=== PATIENT | male | born 1930 | race Caucasian/White ===

== ENCOUNTER 2017-05-14 14:09 | Emergency (ER) | payer MEDICARE ==
[2017-05-14] MEDS ORDERED: KETOROLAC 60 MG/2 ML VIAL IM STA (14:27)
--- NOTE | 2017-05-14 14:34 | ED ---
Extremity Problem HPI - General Chief complaint: Extremity Problem,Nontraumatic Stated complaint: Hip Pain/ Cannot walk Time Seen by Provider: 05/14/17 14:20 Source: patient, RN notes reviewed Mode of arrival: wheelchair Limitations: no limitations - History of Present Illness Initial comments: This is a 87-year-old male with a history of sciatica on the left side who states he's had 2 days of pain on the left side he points to the left SI joint area states it gets very severe when he tries ambulate also has been unable to sleep for the past 2 days. Also the patient is a decreased oral intake the patient does have a history of diabetic neuropathy of the lower extremities he also has bilateral foot drop from his neuropathy. He has a history of BPH she does have no new complaints of bowel or bladder problems. No fevers chills sweats or other symptoms. He denies any dysuria hematuria fevers chills sweats he denies any coughing sneezing shortness of breath he denies any lifting bending stretching. 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 MD Complaint: extremity pain - Related Data Home Medications Medication Instructions Recorded Confirmed Finasteride [Proscar] 5 mg PO DAILY 11/15/15 05/14/17 Insulin Glargine [Lantus] 42 unit SQ DAILY 11/15/15 05/14/17 Atorvastatin [Lipitor] 10 mg PO DAILY 05/14/17 05/14/17 Ibuprofen [Motrin] 800 mg PO Q8H PRN 05/14/17 05/14/17 Previous Rx's Medication Instructions Recorded predniSONE 20 mg PO BID #10 tab 05/14/17 Allergies Allergy/AdvReac Type Severity Reaction Status Date / Time No Known Allergies Allergy Verified 05/14/17 14:31 Review of Systems ROS Statement: Those systems with pertinent positive or pertinent negative responses have been documented in the HPI. ROS Other: All systems not noted in ROS Statement are negative. Past Medical History Past Medical History: Diabetes Mellitus, Hyperlipidemia Additional Past Medical History / Comment(s): uti, vertigo, neuropathy History of Any Multi-Drug Resistant Organisms: None Reported Past Surgical History: Adenoidectomy, Hernia Repair, Joint Replacement, Tonsillectomy Additional Past Surgical History / Comment(s): casandra knee replacement Past Psychological History: No Psychological Hx Reported, Anxiety Smoking Status: Former smoker Past Alcohol Use History: None Reported Past Drug Use History: None Reported General Exam - General Exam Comments Initial Comments: This is a well-developed well-nourished awake alert oriented times 3 male Limitations: no limitations General appearance: alert, anxious Head exam: Present: atraumatic, normocephalic, normal inspection Eye exam: Present: normal appearance, PERRL, EOMI. Absent: scleral icterus, conjunctival injection, periorbital swelling ENT exam: Present: normal exam, mucous membranes moist Neck exam: Present: normal inspection. Absent: tenderness, meningismus, lymphadenopathy Respiratory exam: Present: normal lung sounds bilaterally. Absent: respiratory distress, wheezes, rales, rhonchi, stridor, chest wall tenderness Cardiovascular Exam: Present: regular rate, normal rhythm, normal heart sounds. Absent: systolic murmur, diastolic murmur, rubs, gallop, clicks GI/Abdominal exam: Present: soft, normal bowel sounds. Absent: distended, tenderness, guarding, rebound, rigid, bruit, pulsatile mass Rectal exam: Present: deferred Extremities exam: Present: normal inspection, full ROM, normal capillary refill , other (Patient does demonstrate some evidence of bilateral foot drop which she is early attested to. Some sensory deficit to touch over the lower extremities. DTRs do appear to be equal bilaterally.). Absent: tenderness, pedal edema, joint swelling, calf tenderness Back exam: Present: normal inspection, tenderness (Tenderness palpation of the left SI joint and left lateral sacral musculature. Tenderness also over the sciatica on the left. Gluteal tenderness). Absent: CVA tenderness (R), CVA tenderness (L), muscle spasm Neurological exam: Present: alert, oriented X3, CN II-XII intact, motor sensory deficit, reflexes normal Psychiatric exam: Present: normal affect, normal mood Skin exam: Present: warm, dry, intact, normal color. Absent: rash Course Vital Signs 05/14/17 14:12 Temperature 97.0 F L Pulse Rate 71 Respiratory 18 Rate Blood Pressure 192/84 O2 Sat by Pulse 97 Oximetry - Reevaluation(s) Reevaluation #1: 05/14/17 15:38 Patient states he was starting get some relief until he get a CAT scan. He states the pain is still relatively severe no difference in the symptoms. We will try some IV medications. I did discuss the CT findings with him. Medical Decision Making - Medical Decision Making Reevaluation patient reveals that he is feeling much improved this time is able ambulate is no pain at rest. I did discuss findings with him and his family members patient will be discharged on oral steroids he continues over-the- counter ibuprofen as he had previously for pain and did encourage him to follow- up with . also did recommend physical therapy his family does have physical therapy available for him. - Radiology Data Radiology results: report reviewed (Review the imaging and the report. There is evidence of degenerative joint disease also spinal stenosis at the lower lumbar level. Q findings.), image reviewed Disposition Clinical Impression: Sciatica of left side Disposition: HOME SELF-CARE Condition: Good Instructions: Sciatica (ED) Prescriptions: predniSONE 20 mg PO BID #10 tab Referrals: Mauricio Henderson DO [Primary Care Provider] - 1-2 days
--- NOTE | 2017-05-14 15:14 | CT ---
EXAMINATION TYPE: CT pelvis wo con DATE OF EXAM: 05/14/2017 COMPARISON: NONE HISTORY: Pain, sciatica, difficulty walking CT DLP: 590.01 mGycm Automated exposure control for dose reduction was used. Unenhanced CT of the pelvis was performed with bone and soft tissue window settings obtained. FINDINGS: No fractures are identified of the osseous pelvis. Sacroiliac joints demonstrate degenerative narrowi ng with mild vacuum changes. Moderate to severe degenerative narrowing bilateral hip joint spaces lef t greater than right with associated spur formation and subchondral cyst formation. No evidence for osseous lesion. No soft tissue masses. Severe degenerative change lower lumbar spine. Prostate gland enlargement. Fat-containing inguinal hernias bilaterally. Sigmoid diverticulosis without diverticulitis. IMPRESSION: 1. NO EVIDENCE FOR PELVIC FRACTURE. NO PROXIMAL FEMORAL FRACTURES IDENTIFIED. 2. DEGENERATIVE CHANGES NOTED.
--- NOTE | 2017-05-14 15:16 | CT ---
EXAMINATION TYPE: CT lumbar spine wo con DATE OF EXAM: 05/14/2017 3:05 PM COMPARISON: NONE HISTORY: Pain, sciatica, difficulty walking CT DLP: 942.26 mGycm Automated exposure control for dose reduction was used. Unenhanced CT of the lumbar spine was performed. Bone and soft tissue window settings are submitted as well as coronal and sagittal reconstructions. There is multilevel degenerative disc disease with vacuum disc and severe changes at L4-5 and L5-S1. Motion artifact limits assessment of the spinal canal. L1-L2: Normal disc space height. No disc herniation protrusion or central stenosis. No facet joint arthropathy. No evidence for foraminal encroachment. L2-L3: Normal disc space height. No disc herniation protrusion or central stenosis. No facet joint arthropathy. No evidence for foraminal encroachment. L3-L4: Diffuse disc bulging. Facet arthropathy noted. Mild canal stenosis and foraminal encroachment suspected correlate with MRI. L4-L5: Diffuse disc bulging and facet arthropathy. Motion artifact limits assessment. Ligamentum flav um suspected. Canal stenosis suspected with bilateral foraminal encroachment. Correlate with MRI. L5-S1: Facet arthropathy and degenerative disc disease. Mild bilateral foraminal encroachment. IMPRESSION: 1. Multilevel degenerative disc disease and hypertrophic changes with Limited exam due to motion tyree fact. Suspect canal stenosis at L4-5 and to a lesser extent at L3-4. MRI is recommended given the rojas itation exam.
[2017-05-14] MEDS ORDERED: SODIUM CHLORIDE 0.9% 500 ML IV STA (15:35)
[2017-05-14] MEDS ORDERED: methylPREDNISolone SOD SUCCI 125 MG/2 ML VIAL IV STA (15:35)
[2017-05-14] MEDS ORDERED: HYDROmorphone 1 MG/ML 1 ML SYRINGE IVP STA (15:35)
[2017-05-14 17:32] VITALS: BP 183/85; PULSE 73; RESP 17; TEMP 97.9
[2017-05-14] MEDS ORDERED: ONDANSETRON 4 MG/2 ML VIAL IVP STA (17:35)
== END 2017-05-14 17:45 | disposition home or self-care (01) ==
LOC: EC 14:09
DX: M54.32 Sciatica, left side (principal); E11.40 Type 2 diabetes mellitus with diabetic neuropathy, unspecified; E78.5 Hyperlipidemia, unspecified; F41.9 Anxiety disorder, unspecified; Z87.891 Personal history of nicotine dependence; Z79.4 Long term (current) use of insulin; Z79.899 Other long term (current) drug therapy
CPT/HCPCS: 72192; 72131; 99283; 96374; 96375 ×2; 96372; J2930; J2405; J1885; J1170

== ENCOUNTER 2018-02-20 22:02 | Inpatient (IN) | payer MEDICARE ==
[2018-02-20] MEDS ORDERED: KETOROLAC 30 MG/ML 1 ML VIAL IVP STA (22:36)
[2018-02-20] MEDS ORDERED: SODIUM CHLORIDE 0.9% 1,000 ML IV STA (22:36)
[2018-02-20] MEDS ORDERED: IPRATROPIUM-ALBUTEROL 3 ML NEB INHALATION STA (22:36)
[2018-02-20] MEDS ORDERED: ACETAMINOPHEN IV (For NPO) 1,000 MG in EMPTY BAG 1 BAG IVPB STA (22:36)
[2018-02-20] MEDS ORDERED: SODIUM CHLORIDE 0.9% 500 ML IV STA (22:36)
--- NOTE | 2018-02-20 22:53 | ED ---
General Adult HPI - General Chief complaint: Shortness of Breath Stated complaint: weakness, sore throat Time Seen by Provider: 02/20/18 22:14 Source: patient, family, RN notes reviewed, old records reviewed Mode of arrival: wheelchair Limitations: no limitations - History of Present Illness Initial comments: This is an 88-year-old male to the ER for evaluation he presents today for evaluation regarding multiple complaints, complaints then or not feeling well sore throat or chest cough congestion significantly mild difficulty breathing. Patient has no significant medical history denies chest pain he does have diabetes blood sugars were running well, is been decreased. Patient does not feel hungry, patient remains without appetite - Related Data Home Medications Medication Instructions Recorded Confirmed Finasteride [Proscar] 5 mg PO DAILY 11/15/15 05/14/17 Insulin Glargine [Lantus] 42 unit SQ DAILY 11/15/15 05/14/17 Atorvastatin [Lipitor] 10 mg PO DAILY 05/14/17 05/14/17 Ibuprofen [Motrin] 800 mg PO Q8H PRN 05/14/17 05/14/17 Previous Rx's Medication Instructions Recorded predniSONE 20 mg PO BID #10 tab 05/14/17 Allergies Allergy/AdvReac Type Severity Reaction Status Date / Time No Known Allergies Allergy Verified 05/14/17 14:31 Review of Systems ROS Statement: Those systems with pertinent positive or pertinent negative responses have been documented in the HPI. ROS Other: All systems not noted in ROS Statement are negative. Past Medical History Past Medical History: Diabetes Mellitus, Hyperlipidemia Additional Past Medical History / Comment(s): uti, vertigo, neuropathy History of Any Multi-Drug Resistant Organisms: None Reported Past Surgical History: Adenoidectomy, Hernia Repair, Joint Replacement, Tonsillectomy Additional Past Surgical History / Comment(s): casandra knee replacement Past Psychological History: No Psychological Hx Reported, Anxiety Smoking Status: Former smoker Past Alcohol Use History: None Reported Past Drug Use History: None Reported General Exam Limitations: no limitations General appearance: alert, in no apparent distress Head exam: Present: atraumatic, normocephalic, normal inspection Eye exam: Present: normal appearance, PERRL, EOMI. Absent: scleral icterus, conjunctival injection, periorbital swelling ENT exam: Present: normal exam, mucous membranes dry Neck exam: Present: normal inspection. Absent: tenderness, meningismus, lymphadenopathy Respiratory exam: Present: normal lung sounds bilaterally. Absent: respiratory distress, wheezes, rales, rhonchi, stridor Cardiovascular Exam: Present: regular rate, normal rhythm, normal heart sounds. Absent: systolic murmur, diastolic murmur, rubs, gallop, clicks GI/Abdominal exam: Present: soft, normal bowel sounds. Absent: distended, tenderness, guarding, rebound, rigid Extremities exam: Present: normal inspection, full ROM, normal capillary refill. Absent: tenderness, pedal edema, joint swelling, calf tenderness Back exam: Present: normal inspection Neurological exam: Present: alert, oriented X3, CN II-XII intact Psychiatric exam: Present: normal affect, normal mood Skin exam: Present: warm, dry, intact, normal color. Absent: rash Course Vital Signs 02/20/18 02/20/18 02/20/18 22:13 22:25 23:17 Temperature 99.3 F Pulse Rate 97 86 Respiratory 22 22 Rate Blood Pressure 131/74 O2 Sat by Pulse 95 Oximetry 02/20/18 23:28 Temperature Pulse Rate 90 Respiratory Rate Blood Pressure O2 Sat by Pulse Oximetry - Reevaluation(s) Reevaluation #1: 02/21/18 00:08 Patient does admit to being improved with fever and blood pressure control EKG Findings - EKG Comments: EKG Findings:: EKG shows normal sinus rhythm rate of 93, ME 202, QRS 86, QTc 422 Medical Decision Making - Medical Decision Making 88 male the ER with weakness and cough positive pneumonia. Patient also dehydrated with diabetes. We'll admit for resuscitation breathing treatments and monitoring of cardiopulmonary status - Lab Data Result diagrams: 02/20/18 22:58 02/20/18 22:58 Lab Results 02/20/18 02/20/18 02/20/18 Range/Units 22:58 22:58 22:58 WBC 8.4 (3.8-10.6) k/uL RBC 5.21 (4.30-5.90) m/uL Hgb 15.6 (13.0-17.5) gm/dL Hct 44.1 (39.0-53.0) % MCV 84.7 (80.0-100.0) fL MCH 30.0 (25.0-35.0) pg MCHC 35.4 (31.0-37.0) g/dL RDW 13.4 (11.5-15.5) % Plt Count 167 (150-450) k/uL Neutrophils % 81 % Lymphocytes % 9 % Monocytes % 6 % Eosinophils % 1 % Basophils % 1 % Neutrophils # 6.8 (1.3-7.7) k/uL Lymphocytes # 0.8 L (1.0-4.8) k/uL Monocytes # 0.5 (0-1.0) k/uL Eosinophils # 0.1 (0-0.7) k/uL Basophils # 0.0 (0-0.2) k/uL PT (9.0-12.0) sec INR (<1.2) APTT (22.0-30.0) sec Sodium 135 L (137-145) mmol/L Potassium 4.4 (3.5-5.1) mmol/L Chloride 105 (98-107) mmol/L Carbon Dioxide 23 (22-30) mmol/L Anion Gap 7 mmol/L BUN 17 (9-20) mg/dL Creatinine 0.88 (0.66-1.25) mg/dL Est GFR (CKD-EPI)AfAm 90 (>60 ml/min/1.73 sqM) Est GFR (CKD-EPI)NonAf 77 (>60 ml/min/1.73 sqM) Glucose 232 H (74-99) mg/dL Plasma Lactic Acid Trevor (0.7-2.0) mmol/L Calcium 8.9 (8.4-10.2) mg/dL Phosphorus 2.5 (2.5-4.5) mg/dL Magnesium 1.9 (1.6-2.3) mg/dL Total Bilirubin 0.6 (0.2-1.3) mg/dL AST 30 (17-59) U/L ALT 36 (21-72) U/L Alkaline Phosphatase 81 (38-126) U/L Total Creatine Kinase 202 H (55-170) U/L CK-MB (CK-2) 3.3 H (0.0-2.4) ng/mL CK-MB (CK-2) Rel Index 1.6 Troponin I <0.012 (0.000-0.034) ng/mL Total Protein 6.5 (6.3-8.2) g/dL Albumin 3.5 (3.5-5.0) g/dL Lipase 27 (23-300) U/L Acetone, Qual Positive (Negative) 02/20/18 02/20/18 Range/Units 22:58 22:58 WBC (3.8-10.6) k/uL RBC (4.30-5.90) m/uL Hgb (13.0-17.5) gm/dL Hct (39.0-53.0) % MCV (80.0-100.0) fL MCH (25.0-35.0) pg MCHC (31.0-37.0) g/dL RDW (11.5-15.5) % Plt Count (150-450) k/uL Neutrophils % % Lymphocytes % % Monocytes % % Eosinophils % % Basophils % % Neutrophils # (1.3-7.7) k/uL Lymphocytes # (1.0-4.8) k/uL Monocytes # (0-1.0) k/uL Eosinophils # (0-0.7) k/uL Basophils # (0-0.2) k/uL PT 9.6 (9.0-12.0) sec INR 1.0 (<1.2) APTT 24.1 (22.0-30.0) sec Sodium (137-145) mmol/L Potassium (3.5-5.1) mmol/L Chloride (98-107) mmol/L Carbon Dioxide (22-30) mmol/L Anion Gap mmol/L BUN (9-20) mg/dL Creatinine (0.66-1.25) mg/dL Est GFR (CKD-EPI)AfAm (>60 ml/min/1.73 sqM) Est GFR (CKD-EPI)NonAf (>60 ml/min/1.73 sqM) Glucose (74-99) mg/dL Plasma Lactic Acid Trevor 1.1 (0.7-2.0) mmol/L Calcium (8.4-10.2) mg/dL Phosphorus (2.5-4.5) mg/dL Magnesium (1.6-2.3) mg/dL Total Bilirubin (0.2-1.3) mg/dL AST (17-59) U/L ALT (21-72) U/L Alkaline Phosphatase (38-126) U/L Total Creatine Kinase (55-170) U/L CK-MB (CK-2) (0.0-2.4) ng/mL CK-MB (CK-2) Rel Index Troponin I (0.000-0.034) ng/mL Total Protein (6.3-8.2) g/dL Albumin (3.5-5.0) g/dL Lipase (23-300) U/L Acetone, Qual (Negative) - Radiology Data Radiology results: report reviewed (Chest x-ray is positive for pneumonia), image reviewed Disposition Clinical Impression: Community acquired pneumonia, Dehydration, Hyperglycemia Disposition: ADMITTED IP TO THIS HOSP Condition: Fair Is patient prescribed a controlled substance at d/c from ED?: No Referrals: Mauricio Henderson DO [Primary Care Provider] - 1-2 days
[2018-02-20 23:19] LABS: Partial Thromboplastin Time 24.1 sec (22.0-30.0); Prothrombin Time 9.6 sec (9.0-12.0)
[2018-02-20 23:23] LABS: ALT 36 U/L (21-72); AST 30 U/L (17-59); Albumin 3.5 g/dL (3.5-5.0); Alkaline Phosphatase 81 U/L (38-126); Anion Gap 7 mmol/L; Basophils % (A) 1 %; Blood Urea Nitrogen 17 mg/dL (9-20); Calcium 8.9 mg/dL (8.4-10.2); Carbon Dioxide 23 mmol/L (22-30); Chloride 105 mmol/L (98-107); Eosinophils # (A) 0.1 k/uL (0-0.7); Eosinophils % (A) 1 %; Glucose 232 mg/dL (74-99); HCT 44.1 % (39.0-53.0); HGB 15.6 gm/dL (13.0-17.5); Lipase 27 U/L (23-300); Lymphocytes # (A) 0.8 k/uL (1.0-4.8); Lymphocytes % (A) 9 %; MCHC 35.4 g/dL (31.0-37.0); MCV 84.7 fL (80.0-100.0); Magnesium 1.9 mg/dL (1.6-2.3); Monocytes # (A) 0.5 k/uL (0-1.0); Monocytes % (A) 6 %; Neutrophils # (A) 6.8 k/uL (1.3-7.7); Neutrophils % (A) 81 %; Phosphorus 2.5 mg/dL (2.5-4.5); Platelet Count 167 k/uL (150-450); Potassium 4.4 mmol/L (3.5-5.1); RBC 5.21 m/uL (4.30-5.90); RDW 13.4 % (11.5-15.5); Sodium 135 mmol/L (137-145); Total Bilirubin 0.6 mg/dL (0.2-1.3); Total Protein 6.5 g/dL (6.3-8.2); WBC 8.4 k/uL (3.8-10.6)
[2018-02-20 23:25] LABS: Creatine Kinase 202 U/L (55-170)
[2018-02-20 23:38] LABS: Creatine Kinase MB 3.3 ng/mL (0.0-2.4); Troponin I <0.012 ng/mL (0.000-0.034)
--- NOTE | 2018-02-20 23:40 | XR ---
EXAMINATION TYPE: XR chest 2V DATE OF EXAM: 02/20/2018 COMPARISON: 11/15/2015 HISTORY: Weakness TECHNIQUE: Frontal and lateral views of the chest are obtained. FINDINGS: There is slight blunting of left costophrenic angle. There is a small infiltrate in the le ft lower lobe behind the heart. The other lung ji are clear. Heart size is normal. There are ches t leads. IMPRESSION: There is a new mild pneumonia in the left lower lobe compared to old exam. Normal heart.
[2018-02-20] MEDS ORDERED: LEVOFLOXACIN 750MG-D5W PMX 750 MG in DEXTROSE/WATER 1 150ML.BAG IVPB STA (23:47)
[2018-02-21] MEDS ORDERED: PNEUMONIA PROTOCOL UTILIZED 1 EACH MISC PO PRN (00:09)
[2018-02-21] MEDS ORDERED: IPRATROPIUM-ALBUTEROL 3 ML NEB INHALATION PRN (00:09)
[2018-02-21 00:28] LABS: Appearance,Urine Clear (Clear); Bilirubin,Urine Negative (Negative); Blood,Urine Trace (Negative); Color,Urine Yellow; Glucose,Urine (UA) 4+ (Negative); Ketones,Urine Trace (Negative); Leukocyte Esterase,Urine Negative (Negative); Mucus,Urine Rare /hpf; Nitrite,Urine Negative (Negative); PH, Urine 5.5 (5.0-8.0); Protein,Urine Trace (Negative); RBC,Urine 1 /hpf (0-5); Specific Gravity,Urine 1.016 (1.001-1.035); Squamous Epithelial Cell,Urine <1 /hpf (0-4); Urobilinogen,Urine <2.0 mg/dL (<2.0); WBC,Urine 1 /hpf (0-5)
[2018-02-21] MEDS: SODIUM CHLORIDE 0.9% 1,000 ML IV SCH ×3 (04:10→20:09)
[2018-02-21 07:31] LABS: Glucose,Whole Blood 222 mg/dL (75-99)
[2018-02-21] MEDS: ENOXAPARIN 40 MG/0.4 ML SYRINGE SQ SCH (08:28)
[2018-02-21] MEDS: INSULIN ASPART 100 UNIT/ML 1 ML 10 ML VIAL SQ SCH ×3 (08:28→17:46)
[2018-02-21] MEDS: FINASTERIDE 5 MG TAB PO SCH (09:56)
[2018-02-21 12:55] LABS: Glucose,Whole Blood 109 mg/dL (75-99)
[2018-02-21 14:38] VITALS: RESP 18
[2018-02-21 17:43] LABS: Glucose,Whole Blood 152 mg/dL (75-99)
[2018-02-21] MEDS: LEVOFLOXACIN 750 MG TAB PO SCH (20:10)
[2018-02-21] MEDS: FAMOTIDINE 20 MG/2 ML VIAL IV SCH (20:10)
[2018-02-21] MEDS: ATORVASTATIN 10 MG TAB PO SCH (20:10)
--- NOTE | 2018-02-21 20:17 | P.HPIM ---
History of Present Illness This is a pleasant 88 years old male with past medical history of diabetes mellitus on Lantus daily, hyperlipidemia, diabetic neuropathy, prostatic problem with BPH, who presents because of dyspnea of 2-3 days duration. At that time patient started having some upper respiratory congestion with sore throat, associated with generalized weakness and malaise. Decreased oral intake. With some dyspnea and right-sided headache. However patient denies any chest pain. No sick contacts. In the emergency room chest x-ray showed left lower lobe infiltrate. And he was admitted for left pneumonia Patient denies any history of vomiting or choking or swallowing difficulty. Patient states he takes Lantus daily, with the dose depending on his sugar level in the morning. As per his PCP, he takes for 2 units of Lantus for sugar more than 200, Lantus 30 units for sugar of 150, Lantus 10 units for sugar of 100 Review of Systems CONSTITUTIONAL: No fever, no malaise, no fatigue. HEENT: No recent visual problems or hearing problems. Denied any sore throat. CARDIOVASCULAR: No orthopnea, PND, no palpitations, no syncope. PULMONARY: no hemoptysis. GASTROINTESTINAL: No diarrhea, no nausea, no vomiting, no abdominal pain. Normoactive bowel sounds. NEUROLOGICAL: No headaches, no weakness, no numbness. HEMATOLOGICAL: Denies any bleeding or petechiae. GENITOURINARY: Denies any burning micturition, frequency, or urgency. MUSCULOSKELETAL/RHEUMATOLOGICAL: Denies any joint pain, swelling, or any muscle pain. ENDOCRINE: Denies any polyuria or polydipsia. Past Medical History Past Medical History: Diabetes Mellitus, Hyperlipidemia Additional Past Medical History / Comment(s): uti, vertigo, neuropathy History of Any Multi-Drug Resistant Organisms: None Reported Past Surgical History: Adenoidectomy, Hernia Repair, Joint Replacement, Tonsillectomy Additional Past Surgical History / Comment(s): casandra knee replacement; bilateral cataract removal, lens implants Past Anesthesia/Blood Transfusion Reactions: No Reported Reaction Past Psychological History: No Psychological Hx Reported, Anxiety Smoking Status: Former smoker Past Alcohol Use History: None Reported Past Drug Use History: None Reported - Past Family History Father Additional Family Medical History / Comment(s): Father of emphysema, mom at 101 Medications and Allergies Home Medications Medication Instructions Recorded Confirmed Type Finasteride [Proscar] 5 mg PO DAILY 11/15/15 02/21/18 History Insulin Glargine [Lantus] See Protocol SQ DAILY 11/15/15 02/21/18 History Atorvastatin [Lipitor] 10 mg PO DAILY 05/14/17 02/21/18 History Allergies Allergy/AdvReac Type Severity Reaction Status Date / Time No Known Allergies Allergy Verified 02/21/18 08:31 Physical Exam Vitals: Vital Signs Temp Pulse Pulse Resp BP BP Pulse Ox 02/21/18 07:13 96 02/21/18 07:04 97.9 F 60 16 133/77 97 02/21/18 01:17 99.3 F 86 16 108/65 96 02/21/18 00:29 98.7 F 87 20 118/56 95 02/20/18 23:28 90 02/20/18 23:17 86 02/20/18 22:25 22 02/20/18 22:13 99.3 F 97 22 131/74 95 Intake and Output 02/20/18 02/21/18 02/21/18 22:59 06:59 14:59 Intake Total 1600 Balance 1600 Intake: Amount of Fluid Infused ( 1600 ml) Other: Voiding Method Toilet Urinal # Voids 0 # Bowel Movements 0 Weight 88.451 kg GENERAL: The patient is alert and oriented x3, not in any acute distress. Well developed, well nourished. HEENT: Pupils are round and equally reacting to light. EOMI. No scleral icterus. No conjunctival pallor. Normocephalic, atraumatic. No pharyngeal erythema. No thyromegaly. CARDIOVASCULAR: S1 and S2 present. No murmurs, rubs, or gallops. PULMONARY: Chest is clear to auscultation, no wheezing or crackles. ABDOMEN: Soft, nontender, nondistended, normoactive bowel sounds. No palpable organomegaly. MUSCULOSKELETAL: No joint swelling or deformity. EXTREMITIES: No cyanosis, clubbing, or pedal edema. NEUROLOGICAL: Gross neurological examination did not reveal any focal deficits. SKIN: No rashes. Results CBC & Chem 7: 02/20/18 22:58 02/20/18 22:58 Labs: Abnormal Lab Results - Last 24 Hours (Table) 02/20/18 02/20/18 02/20/18 Range/Units 22:58 22:58 22:58 Lymphocytes # 0.8 L (1.0-4.8) k/uL Sodium 135 L (137-145) mmol/L Glucose 232 H (74-99) mg/dL POC Glucose (mg/dL) (75-99) mg/dL Total Creatine Kinase 202 H (55-170) U/L CK-MB (CK-2) 3.3 H (0.0-2.4) ng/mL Urine Protein (Negative) Urine Glucose (UA) (Negative) Urine Ketones (Negative) Urine Blood (Negative) Urine Mucus (None) /hpf 02/21/18 02/21/18 Range/Units 00:04 07:08 Lymphocytes # (1.0-4.8) k/uL Sodium (137-145) mmol/L Glucose (74-99) mg/dL POC Glucose (mg/dL) 222 H (75-99) mg/dL Total Creatine Kinase (55-170) U/L CK-MB (CK-2) (0.0-2.4) ng/mL Urine Protein Trace H (Negative) Urine Glucose (UA) 4+ H (Negative) Urine Ketones Trace H (Negative) Urine Blood Trace H (Negative) Urine Mucus Rare H (None) /hpf Thrombosis Risk Factor Assmnt - Choose All That Apply Any of the Below Risk Factors Present?: Yes Each Factor Represents 1 point: Obesity (BMI >25), Serious lung disease incl. pneumonia (< 1month) Other Risk Factors: Yes Each Risk Factor Represents 3 Points: Age 75 years or older Thrombosis Risk Factor Assessment Total Risk Factor Score: 5 Thrombosis Risk Factor Assessment Level: High Risk Assessment and Plan Assessment: Left lower lobe pneumonia Sore throats and nasal congestion Diabetes mellitus, on Lantus daily Diabetic neuropathy BPH Hyperlipidemia Plan: This is a pleasant 88 years old male who presents with left pneumonia. Patient was started on Levaquin, and IV fluids. We'll continue with same and treatment. Continue symptomatic treatment. Patient got 2 L of fluids in the emergency room and already started feeling better, his headache is completely resolved on admission. Monitor labs and vitals. DVT and GI prophylaxis. Follow-up culture results. Further recommendation is based on the clinical course of the patient DVT prophylaxis on Lovenox GI prophylaxis Pepcid PT/OT: Pending
[2018-02-21 20:55] LABS: Glucose,Whole Blood 232 mg/dL (75-99)
[2018-02-21] MEDS: INSULIN DETEMIR 100 UNIT/ML 10 ML VIAL SQ SCH (21:16)
[2018-02-21] MEDS ORDERED: LEVOFLOXACIN 750MG-D5W PMX 750 MG in DEXTROSE/WATER 1 150ML.BAG IVPB SCH (22:00)
[2018-02-22 03:16] LABS: Glucose,Whole Blood 125 mg/dL (75-99)
[2018-02-22] MEDS: SODIUM CHLORIDE 0.9% 1,000 ML IV SCH ×2 (06:15→17:45)
[2018-02-22 07:22] LABS: Glucose,Whole Blood 87 mg/dL (75-99)
[2018-02-22] MEDS: INSULIN ASPART 100 UNIT/ML 1 ML 10 ML VIAL SQ SCH ×3 (07:33→17:46)
--- NOTE | 2018-02-22 08:23 | XR ---
EXAMINATION TYPE: XR chest 2V DATE OF EXAM: 02/22/2018 COMPARISON: 02/20/2018 TECHNIQUE: PA and lateral views submitted. HISTORY: Pneumonia FINDINGS: The lungs are clear and there is no pneumothorax, pleural effusion, or focal pneumonia. Hyperinflat ion suggests COPD. Arthropathy of the shoulders. Subsegmental changes at the left lung base. Hypertro phic and degenerative change of the spine. Atherosclerotic change aorta. IMPRESSION: 1. COPD. Left basilar atelectasis or infiltrate is stable.
[2018-02-22] MEDS ORDERED: FINASTERIDE 5 MG TAB PO SCH (09:00)
[2018-02-22] MEDS: FINASTERIDE 5 MG TAB PO SCH (09:11)
[2018-02-22] MEDS: ENOXAPARIN 40 MG/0.4 ML SYRINGE SQ SCH (09:12)
[2018-02-22] MEDS: FAMOTIDINE 20 MG/2 ML VIAL IV SCH (09:12)
[2018-02-22 09:53] LABS: Basophils # (A) 0.1 k/uL (0-0.2); Basophils % (A) 1 %; Eosinophils # (A) 0.1 k/uL (0-0.7); Eosinophils % (A) 1 %; HCT 45.1 % (39.0-53.0); HGB 14.8 gm/dL (13.0-17.5); Lymphocytes % (A) 10 %; MCH 27.9 pg (25.0-35.0); MCHC 32.9 g/dL (31.0-37.0); MCV 84.7 fL (80.0-100.0); Monocytes # (A) 0.5 k/uL (0-1.0); Monocytes % (A) 5 %; Neutrophils # (A) 8.1 k/uL (1.3-7.7); Neutrophils % (A) 81 %; Platelet Count 210 k/uL (150-450); RBC 5.32 m/uL (4.30-5.90); RDW 13.3 % (11.5-15.5); WBC 10.1 k/uL (3.8-10.6)
[2018-02-22 10:11] LABS: Anion Gap 4 mmol/L; Blood Urea Nitrogen 14 mg/dL (9-20); Calcium 8.8 mg/dL (8.4-10.2); Carbon Dioxide 28 mmol/L (22-30); Chloride 108 mmol/L (98-107); Glucose 128 mg/dL (74-99); Potassium 4.6 mmol/L (3.5-5.1); Sodium 140 mmol/L (137-145)
[2018-02-22 12:03] LABS: Glucose,Whole Blood 108 mg/dL (75-99)
[2018-02-22 12:38] LABS: Appearance,Urine Clear (Clear); Bilirubin,Urine Negative (Negative); Blood,Urine Large (Negative); Color,Urine Yellow; Glucose,Urine (UA) Negative (Negative); Ketones,Urine Trace (Negative); Leukocyte Esterase,Urine Large (Negative); Nitrite,Urine Negative (Negative); Protein,Urine Negative (Negative); RBC,Urine >182 /hpf (0-5); Specific Gravity,Urine 1.009 (1.001-1.035); Urobilinogen,Urine <2.0 mg/dL (<2.0); WBC,Urine 35 /hpf (0-5)
[2018-02-22] MEDS: methylPREDNISolone SOD SUCCI 125 MG/2 ML VIAL IV SCH ×2 (12:46→17:46)
[2018-02-22] MEDS ORDERED: TRIMETHOBENZAMIDE 300 MG CAP PO PRN (14:58)
--- NOTE | 2018-02-22 15:01 | P.PN ---
Subjective This is a pleasant 88 years old male with past medical history of diabetes mellitus on Lantus daily, hyperlipidemia, diabetic neuropathy, prostatic problem with BPH, who presents because of dyspnea of 2-3 days duration. At that time patient started having some upper respiratory congestion with sore throat, associated with generalized weakness and malaise. Decreased oral intake. With some dyspnea and right-sided headache. However patient denies any chest pain. No sick contacts. In the emergency room chest x-ray showed left lower lobe infiltrate. And he was admitted for left pneumonia Patient denies any history of vomiting or choking or swallowing difficulty. Patient states he takes Lantus daily, with the dose depending on his sugar level in the morning. As per his PCP, he takes for 2 units of Lantus for sugar more than 200, Lantus 30 units for sugar of 150, Lantus 10 units for sugar of 100 02/22/2018 Today patient is a still dyspneic. However he denies chest pain. History of throat and coughing are improving. However patient developing nausea with no vomiting. Patient also wants to have urinary retention after several attempts with straight cath Cobian catheter was placed. Urinalysis and urine culture were sent patient is already on finasteride. Patient is [place] smoker he smoked for 15 years and quit about 35 years ago. It was noticed that his chest is tight and barrel-shaped with decreased air entry repeat chest x-ray from today shows COPD with stable infiltrate. Patient was started on steroids Objective - Vital Signs Vital signs: Vital Signs Temp 97.6 F 02/22/18 07:00 Pulse 101 H 02/22/18 07:00 Resp 18 02/22/18 08:00 BP 165/70 02/22/18 07:00 Pulse Ox 96 02/22/18 07:00 Intake & Output 02/21/18 02/22/18 02/22/18 18:59 06:59 18:59 Intake Total 200 Output Total 2626 1250 Balance -2626 -1250 200 Intake: Oral 200 Output: Urine 1875 1250 Straight 500 Post Void Residual 751 Other: Voiding Method Toilet Toilet Urinal Urinal # Voids 0 2 # Bowel Movements 1 - Exam GENERAL: The patient is alert and oriented x3, not in any acute distress. Well developed, well nourished. HEENT: Pupils are round and equally reacting to light. EOMI. No scleral icterus. No conjunctival pallor. Normocephalic, atraumatic. No pharyngeal erythema. No thyromegaly. CARDIOVASCULAR: S1 and S2 present. No murmurs, rubs, or gallops. PULMONARY: Chest is clear to auscultation, no wheezing or crackles. ABDOMEN: Soft, nontender, nondistended, normoactive bowel sounds. No palpable organomegaly. MUSCULOSKELETAL: No joint swelling or deformity. EXTREMITIES: No cyanosis, clubbing, or pedal edema. NEUROLOGICAL: Gross neurological examination did not reveal any focal deficits. SKIN: No rashes. - Labs CBC & Chem 7: 02/22/18 09:15 02/22/18 09:15 Labs: Abnormal Lab Results - Last 24 Hours (Table) 02/21/18 02/21/18 02/22/18 Range/Units 16:59 20:54 03:14 Neutrophils # (1.3-7.7) k/uL Chloride (98-107) mmol/L Glucose (74-99) mg/dL POC Glucose (mg/dL) 152 H 232 H 125 H (75-99) mg/dL Urine Ketones (Negative) Urine Blood (Negative) Ur Leukocyte Esterase (Negative) Urine RBC (0-5) /hpf Urine WBC (0-5) /hpf 02/22/18 02/22/18 02/22/18 Range/Units 09:15 09:15 11:55 Neutrophils # 8.1 H (1.3-7.7) k/uL Chloride 108 H (98-107) mmol/L Glucose 128 H (74-99) mg/dL POC Glucose (mg/dL) 108 H (75-99) mg/dL Urine Ketones (Negative) Urine Blood (Negative) Ur Leukocyte Esterase (Negative) Urine RBC (0-5) /hpf Urine WBC (0-5) /hpf 02/22/18 Range/Units 12:15 Neutrophils # (1.3-7.7) k/uL Chloride (98-107) mmol/L Glucose (74-99) mg/dL POC Glucose (mg/dL) (75-99) mg/dL Urine Ketones Trace H (Negative) Urine Blood Large H (Negative) Ur Leukocyte Esterase Large H (Negative) Urine RBC >182 H (0-5) /hpf Urine WBC 35 H (0-5) /hpf Microbiology - Last 24 Hours (Table) 02/21/18 00:04 Urine Culture - Final Urine,Voided 02/20/18 22:58 Blood Culture - Preliminary Blood No Growth after 24 hours Assessment and Plan Assessment: Left lower lobe pneumonia COPD with acute exacerbation Urinary retention Sore throats and nasal congestion Diabetes mellitus, on Lantus daily Diabetic neuropathy BPH Hyperlipidemia Plan: This is a pleasant 88 years old male who presents with left pneumonia. Patient was started on Levaquin, and IV fluids. We'll continue with same and treatment. Continue symptomatic treatment. Patient got 2 L of fluids in the emergency room and already started feeling better, his headache is completely resolved on admission. Monitor labs and vitals. Cobian catheter was placed. Patient was started on steroids DVT and GI prophylaxis. Follow-up culture results. Further recommendation is based on the clinical course of the patient DVT prophylaxis on Lovenox GI prophylaxis Pepcid PT/OT: Pending
[2018-02-22] MEDS: IPRATROPIUM-ALBUTEROL 3 ML NEB INHALATION SCH ×2 (15:31→19:10)
[2018-02-22 17:36] LABS: Glucose,Whole Blood 183 mg/dL (75-99)
[2018-02-22 21:21] LABS: Glucose,Whole Blood 284 mg/dL (75-99)
[2018-02-22] MEDS: ATORVASTATIN 10 MG TAB PO SCH (22:04)
[2018-02-22] MEDS: INSULIN DETEMIR 100 UNIT/ML 10 ML VIAL SQ SCH (22:05)
[2018-02-22] MEDS: LEVOFLOXACIN 750 MG TAB PO SCH (22:05)
[2018-02-22] MEDS: FAMOTIDINE 20 MG TAB PO SCH (22:06)
[2018-02-23] MEDS: methylPREDNISolone SOD SUCCI 125 MG/2 ML VIAL IV SCH ×3 (00:12→12:38)
[2018-02-23] MEDS ORDERED: IPRATROPIUM-ALBUTEROL 3 ML NEB INHALATION PRN (00:27)
[2018-02-23] MEDS: IPRATROPIUM-ALBUTEROL 3 ML NEB INHALATION SCH ×5 (00:27→19:49)
[2018-02-23] MEDS: SODIUM CHLORIDE 0.9% 1,000 ML IV SCH ×4 (03:11→21:06)
[2018-02-23 07:23] LABS: Glucose,Whole Blood 130 mg/dL (75-99)
[2018-02-23] MEDS: ENOXAPARIN 40 MG/0.4 ML SYRINGE SQ SCH (08:41)
[2018-02-23] MEDS: INSULIN ASPART 100 UNIT/ML 1 ML 10 ML VIAL SQ SCH ×3 (08:41→18:01)
[2018-02-23] MEDS: FINASTERIDE 5 MG TAB PO SCH (08:41)
[2018-02-23] MEDS: FAMOTIDINE 20 MG TAB PO SCH ×2 (08:41→21:04)
[2018-02-23 09:54] LABS: Basophils % (A) 0 %; Eosinophils % (A) 0 %; HGB 14.2 gm/dL (13.0-17.5); Lymphocytes # (A) 0.8 k/uL (1.0-4.8); Lymphocytes % (A) 9 %; MCH 28.7 pg (25.0-35.0); MCHC 33.1 g/dL (31.0-37.0); MCV 86.7 fL (80.0-100.0); Mean Platelet Volume 7.6; Monocytes # (A) 0.3 k/uL (0-1.0); Monocytes % (A) 4 %; Neutrophils # (A) 6.9 k/uL (1.3-7.7); Neutrophils % (A) 85 %; Platelet Count 234 k/uL (150-450); RBC 4.96 m/uL (4.30-5.90); RDW 13.3 % (11.5-15.5); WBC 8.1 k/uL (3.8-10.6)
[2018-02-23 09:55] LABS: Anion Gap 10 mmol/L; Blood Urea Nitrogen 20 mg/dL (9-20); Calcium 8.6 mg/dL (8.4-10.2); Carbon Dioxide 23 mmol/L (22-30); Chloride 107 mmol/L (98-107); Glucose 191 mg/dL (74-99); Potassium 4.6 mmol/L (3.5-5.1); Sodium 140 mmol/L (137-145)
[2018-02-23 12:00] LABS: Glucose,Whole Blood 246 mg/dL (75-99)
--- NOTE | 2018-02-23 13:53 | P.PN ---
Subjective This is a pleasant 88 years old male with past medical history of diabetes mellitus on Lantus daily, hyperlipidemia, diabetic neuropathy, prostatic problem with BPH, who presents because of dyspnea of 2-3 days duration. At that time patient started having some upper respiratory congestion with sore throat, associated with generalized weakness and malaise. Decreased oral intake. With some dyspnea and right-sided headache. However patient denies any chest pain. No sick contacts. In the emergency room chest x-ray showed left lower lobe infiltrate. And he was admitted for left pneumonia Patient denies any history of vomiting or choking or swallowing difficulty. Patient states he takes Lantus daily, with the dose depending on his sugar level in the morning. As per his PCP, he takes for 2 units of Lantus for sugar more than 200, Lantus 30 units for sugar of 150, Lantus 10 units for sugar of 100 02/22/2018 Today patient is a still dyspneic. However he denies chest pain. History of throat and coughing are improving. However patient developing nausea with no vomiting. Patient also wants to have urinary retention after several attempts with straight cath Cobian catheter was placed. Urinalysis and urine culture were sent patient is already on finasteride. Patient is [place] smoker he smoked for 15 years and quit about 35 years ago. It was noticed that his chest is tight and barrel-shaped with decreased air entry repeat chest x-ray from today shows COPD with stable infiltrate. Patient was started on steroids 02/23/2018 Patient today is feeling better, his breathing significantly improved, with no chest pain. Air entry and movement in the light is better compared to chest tightness yesterday. We will start tapering steroids. Patient has minimal cough and sore throat as both are improving. His generalized weakness is also improving patient has been evaluated by physical therapy with recommendation for home versus home with home health care. Patient is still has a Cobian catheter with clear urine, I offered to DC the Cobian catheter however patient preferred to keep it in follow-up with his urologist. He has a urologist who hasn't seen for the last 2 years and the second is going to call and make appointment. UA: Pending Antonette possible traumatic Cobian catheter insertion Patient states he was not on home oxygen or steroids at home. Continue with levofloxacin, lower IV fluids. Objective - Vital Signs Vital signs: Vital Signs Temp 97.0 F L 02/23/18 06:34 Pulse 70 02/23/18 06:34 Resp 18 02/23/18 06:34 BP 140/79 02/23/18 06:34 Pulse Ox 96 02/23/18 06:34 Intake & Output 02/22/18 02/23/18 02/23/18 18:59 06:59 18:59 Intake Total 200 Output Total 2000 750 Balance -1800 -750 Intake: Oral 200 Output: Urine 1999 750 Other: Voiding Method Toilet Toilet Urinal Urinal # Bowel Movements 0 1 - Exam GENERAL: The patient is alert and oriented x3, not in any acute distress. Well developed, well nourished. HEENT: Pupils are round and equally reacting to light. EOMI. No scleral icterus. No conjunctival pallor. Normocephalic, atraumatic. No pharyngeal erythema. No thyromegaly. CARDIOVASCULAR: S1 and S2 present. No murmurs, rubs, or gallops. -PULMONARY: Chest is clear to auscultation, scattered wheezing . no crackles. ABDOMEN: Soft, nontender, nondistended, normoactive bowel sounds. No palpable organomegaly. Cobian catheter is in place with clear urine MUSCULOSKELETAL: No joint swelling or deformity. EXTREMITIES: No cyanosis, clubbing, or pedal edema. NEUROLOGICAL: Gross neurological examination did not reveal any focal deficits. SKIN: No rashes. - Labs CBC & Chem 7: 02/23/18 08:31 02/23/18 08:31 Labs: Abnormal Lab Results - Last 24 Hours (Table) 02/22/18 02/22/18 02/23/18 Range/Units 17:16 21:20 07:19 Lymphocytes # (1.0-4.8) k/uL Glucose (74-99) mg/dL POC Glucose (mg/dL) 183 H 284 H 130 H (75-99) mg/dL 02/23/18 02/23/18 02/23/18 Range/Units 08:31 08:31 11:57 Lymphocytes # 0.8 L (1.0-4.8) k/uL Glucose 191 H (74-99) mg/dL POC Glucose (mg/dL) 246 H (75-99) mg/dL Microbiology - Last 24 Hours (Table) 02/22/18 12:15 Urine Culture - Final Urine,Catheterized 02/20/18 22:58 Blood Culture - Preliminary Blood No Growth after 48 hours 02/21/18 00:04 Urine Culture - Final Urine,Voided Assessment and Plan Assessment: Left lower lobe pneumonia COPD with acute exacerbation Urinary retention Sore throats and nasal congestion Diabetes mellitus, on Lantus daily Diabetic neuropathy BPH Hyperlipidemia Plan: This is a pleasant 88 years old male who presents with left pneumonia. Patient was started on Levaquin, and IV fluids. We'll continue with same and treatment. Continue symptomatic treatment. Patient got 2 L of fluids in the emergency room and already started feeling better, his headache is completely resolved on admission. Monitor labs and vitals. Cobian catheter was placed. Patient was started on steroids DVT and GI prophylaxis. Follow-up culture results. Further recommendation is based on the clinical course of the patient DVT prophylaxis on Lovenox GI prophylaxis Pepcid PT/OT: Home care Discharge planning in 24-48 hours
[2018-02-23 17:17] LABS: Glucose,Whole Blood 234 mg/dL (75-99)
[2018-02-23] MEDS: predniSONE 10 MG TAB PO SCH (18:01)
[2018-02-23 20:36] LABS: Glucose,Whole Blood 256 mg/dL (75-99)
[2018-02-23] MEDS: LEVOFLOXACIN 750 MG TAB PO SCH (21:04)
[2018-02-23] MEDS: ATORVASTATIN 10 MG TAB PO SCH (21:04)
[2018-02-23] MEDS: INSULIN DETEMIR 100 UNIT/ML 10 ML VIAL SQ SCH (21:05)
[2018-02-24] MEDS: IPRATROPIUM-ALBUTEROL 3 ML NEB INHALATION SCH ×3 (07:03→16:41)
[2018-02-24 07:36] LABS: Glucose,Whole Blood 205 mg/dL (75-99)
[2018-02-24] MEDS: ENOXAPARIN 40 MG/0.4 ML SYRINGE SQ SCH (08:15)
[2018-02-24] MEDS: FINASTERIDE 5 MG TAB PO SCH (08:15)
[2018-02-24] MEDS: INSULIN ASPART 100 UNIT/ML 1 ML 10 ML VIAL SQ SCH ×2 (08:15→13:57)
[2018-02-24] MEDS: FAMOTIDINE 20 MG TAB PO SCH (08:15)
[2018-02-24] MEDS: predniSONE 10 MG TAB PO SCH (08:15)
[2018-02-24] MEDS: SODIUM CHLORIDE 0.9% 1,000 ML IV SCH ×2 (08:16)
[2018-02-24 09:25] LABS: Basophils % (A) 0 %; Eosinophils % (A) 0 %; HCT 43.7 % (39.0-53.0); HGB 13.9 gm/dL (13.0-17.5); Lymphocytes # (A) 1.2 k/uL (1.0-4.8); Lymphocytes % (A) 8 %; MCH 27.3 pg (25.0-35.0); MCHC 31.8 g/dL (31.0-37.0); MCV 85.9 fL (80.0-100.0); Mean Platelet Volume 6.7; Monocytes # (A) 0.5 k/uL (0-1.0); Monocytes % (A) 3 %; Neutrophils # (A) 13.1 k/uL (1.3-7.7); Neutrophils % (A) 87 %; Platelet Count 256 k/uL (150-450); RBC 5.08 m/uL (4.30-5.90); RDW 13.4 % (11.5-15.5); WBC 14.9 k/uL (3.8-10.6)
[2018-02-24 09:50] LABS: Anion Gap 8 mmol/L; Blood Urea Nitrogen 21 mg/dL (9-20); Calcium 8.4 mg/dL (8.4-10.2); Carbon Dioxide 24 mmol/L (22-30); Chloride 107 mmol/L (98-107); Glucose 195 mg/dL (74-99); Potassium 4.8 mmol/L (3.5-5.1); Sodium 139 mmol/L (137-145)
[2018-02-24 12:19] LABS: Glucose,Whole Blood 203 mg/dL (75-99)
[2018-02-24 14:41] LABS: Appearance,Urine Clear (Clear); Bacteria,Urine Rare /hpf; Bilirubin,Urine Negative (Negative); Blood,Urine Small (Negative); Color,Urine Light Yellow; Glucose,Urine (UA) 4+ (Negative); Ketones,Urine Negative (Negative); Leukocyte Esterase,Urine Trace (Negative); Mucus,Urine Rare /hpf; Nitrite,Urine Negative (Negative); Protein,Urine Negative (Negative); RBC,Urine 1 /hpf (0-5); Specific Gravity,Urine 1.009 (1.001-1.035); Urobilinogen,Urine <2.0 mg/dL (<2.0); WBC,Urine 3 /hpf (0-5)
[2018-02-24 15:07] VITALS: BP 162/74; PULSE 72; TEMP 97.4
--- NOTE | 2018-02-24 21:21 | P.DS ---
Providers Date of admission: 02/21/18 00:09 Attending physician: Harris Fry Primary care physician: Mauricio Henderson [facility] Course: This is a pleasant 88 years old male with past medical history of diabetes mellitus on Lantus daily, hyperlipidemia, diabetic neuropathy, prostatic problem with BPH, who presents because of dyspnea of 2-3 days duration. At that time patient started having some upper respiratory congestion with sore throat, associated with generalized weakness and malaise. Decreased oral intake. With some dyspnea and right-sided headache. he was admitted for left pneumonia, treated with levofloxacin , and iv fluid and steroids are added for copd acute exacerbation. pt showed interval improvement and no chest pain , no dyspnea, his cough and sore throat were resolved . his hosptal course was complicated with urinary retension , alberts inserted and pt did not want to take out now but to f/u with urologist as outpt, i talked to his daughter at bed side , she made appointment with both his urologist and pcp, i talked to Neris who was telephone clerk from , i updated her with the pt and his case, including rechecking WBC at 14K upon discharge which is mostly from steroid. pt is DC with [facility]. Pt was instructed about the problems and management plan and Pt verbalized understanding and acceptance Pt is found stable and can be discharged to the community but needs follow up as outpt GENERAL: The patient is alert and oriented x3, not in any acute distress. Well developed, well nourished. HEENT: Pupils are round and equally reacting to light. EOMI. No scleral icterus. No conjunctival pallor. Normocephalic, atraumatic. No pharyngeal erythema. No thyromegaly. CARDIOVASCULAR: S1 and S2 present. No murmurs, rubs, or gallops. PULMONARY: Chest is clear to auscultation, no wheezing or crackles. ABDOMEN: Soft, nontender, nondistended, normoactive bowel sounds. No palpable organomegaly. MUSCULOSKELETAL: No joint swelling or deformity. EXTREMITIES: No cyanosis, clubbing, or pedal edema. NEUROLOGICAL: Gross neurological examination did not reveal any focal deficits. SKIN: No rashes. time spent more than 35 min Patient Condition at Discharge: Fair Plan - Discharge Summary New Discharge Prescriptions: New Albuterol Inhaler [Ventolin Hfa Inhaler] 1 - 2 puff INHALATION Q6H PRN 30 Days #1 inhaler PRN Reason: Dyspnea Famotidine [Pepcid] 20 mg PO BID #60 tab Insulin Detemir [Levemir] 30 unit SQ HS syr Levofloxacin [Levaquin] 750 mg PO HS 5 Days #5 tab Trimethobenzamide [Tigan] 300 mg PO QID PRN #3 cap PRN Reason: Nausea And Vomiting predniSONE 0 mg PO DIRECTED #21 tab Continue Insulin Glargine [Lantus] See Protocol SQ DAILY Finasteride [Proscar] 5 mg PO DAILY Atorvastatin [Lipitor] 10 mg PO DAILY Discharge Medication List Finasteride [Proscar] 5 mg PO DAILY 11/15/15 [History] Insulin Glargine [Lantus] See Protocol SQ DAILY 11/15/15 [History] Atorvastatin [Lipitor] 10 mg PO DAILY 05/14/17 [History] Albuterol Inhaler [Ventolin Hfa Inhaler] 1 - 2 puff INHALATION Q6H PRN 30 Days # 1 inhaler 02/24/18 [Rx] Famotidine [Pepcid] 20 mg PO BID #60 tab 02/24/18 [Rx] Insulin Detemir [Levemir] 30 unit SQ HS syr 02/24/18 [Rx] Levofloxacin [Levaquin] 750 mg PO HS 5 Days #5 tab 02/24/18 [Rx] Trimethobenzamide [Tigan] 300 mg PO QID PRN #3 cap 02/24/18 [Rx] predniSONE 0 mg PO DIRECTED #21 tab 02/24/18 [Rx] Follow up Appointment(s)/Referral(s): Venkat Au MD [STAFF PHYSICIAN] - 1 Week Mauricio Henderson DO [Primary Care Provider] - 02/28/18 1:00 pm Patient Instructions/Handouts: Alberts Catheter Placement and Care (DC), Pneumonia (DC) Activity/Diet/Wound Care/Special Instructions: Activity as tolerated, fall precautions, up with walker. Cardiac, diabetic diet. 1800 kcal per day Discharge Disposition: HOME WITH HOME HEALTH SERVICES
== END 2018-02-24 17:22 | disposition home health service (06) | DRG 194 ==
LOC: EC 22:02 → 4MS4W 02-21 00:09
PROVIDERS: ADMIT Hospitalist; ATTEND Hospitalist
DX: J18.9 Pneumonia, unspecified organism (principal); J44.0 Chronic obstructive pulmonary disease with (acute) lower respiratory infection; J44.1 Chronic obstructive pulmonary disease with (acute) exacerbation; E11.40 Type 2 diabetes mellitus with diabetic neuropathy, unspecified; E11.65 Type 2 diabetes mellitus with hyperglycemia; E78.5 Hyperlipidemia, unspecified; E86.0 Dehydration; N40.1 Benign prostatic hyperplasia with lower urinary tract symptoms; R33.8 Other retention of urine; R09.81 Nasal congestion; Z79.4 Long term (current) use of insulin; Z79.899 Other long term (current) drug therapy; Z87.891 Personal history of nicotine dependence; Z96.653 Presence of artificial knee joint, bilateral; Z87.440 Personal history of urinary (tract) infections; Z82.5 Family history of asthma and other chronic lower respiratory diseases; Z98.42 Cataract extraction status, left eye; Z98.41 Cataract extraction status, right eye; Z96.1 Presence of intraocular lens
CPT/HCPCS: 36415; 71046; 80048; 80053; 81001; 82009; 82550; 82553; 83605; 83690; 83735; 84100; 84484; 85025; 85610; 85730; 87040; 87086; 93005; 94640; 96365; 96368; 96375; 99285

== ENCOUNTER → 2018-03-14 | Outpatient (CLI) | payer MEDICARE ==
--- NOTE | 2018-03-14 10:48 | XR ---
EXAMINATION TYPE: XR chest 2V DATE OF EXAM: 03/14/2018 COMPARISON: 02/22/2018 HISTORY: Shortness of breath TECHNIQUE: Frontal and lateral views of the chest are obtained. FINDINGS: Scattered senescent parenchymal changes noted. Hyperinflation compatible with COPD. No evidence for infiltrate. No evidence for atelectasis. Heart size is stable. Mediastinal structures are stable and grossly unremarkable. No evidence for hilar prominence. Degenerative changes dorsal spine. IMPRESSION: 1. No evidence for acute pulmonary disease.
== END | disposition home or self-care (01) ==
LOC: RADXRYALE 10:32
PROVIDERS: ATTEND Physician Assistant Medical
DX: J18.0 Bronchopneumonia, unspecified organism (principal)
CPT/HCPCS: 71046

== ENCOUNTER 2019-11-18 08:45 | Emergency (ER) | payer MEDICARE ==
[2019-11-18 08:55] VITALS: RESP 18; TEMP 98.2
[2019-11-18] MEDS ORDERED: MECLIZINE 25 MG TAB PO STA (09:01)
--- NOTE | 2019-11-18 09:04 | ED ---
General Adult HPI - General Chief complaint: Dizziness Stated complaint: Dizziness Time Seen by Provider: 11/18/19 08:50 Source: patient, RN notes reviewed, old records reviewed Mode of arrival: EMS Limitations: no limitations - History of Present Illness Initial comments: This is an 89-year-old male who presents emergency department with past medical history significant for high cholesterol and vertigo. Patient states she woke up this morning about 7:00 in the room was spinning he never had it's been to this degree before. Patient states movement definitely made it worse. Patient also complaining of a posterior headache. Patient states he also is mildly nauseated. Patient states he normally didn't get a headache and normally was nauseated but all his symptoms have currently resolved. Patient states right now he has no complaint. Patient denies any chest pain shortness of breath or difficulty breathing at any time. Patient denies any palpitations. Patient denies any abdominal pain. Patient denies any vomiting or diarrhea. Patient denies any other symptoms at this time. - Related Data Home Medications Medication Instructions Recorded Confirmed Finasteride [Proscar] 5 mg PO DAILY 11/15/15 02/21/18 Insulin Glargine [Lantus] See Protocol SQ DAILY 11/15/15 02/21/18 Atorvastatin [Lipitor] 10 mg PO DAILY 05/14/17 02/21/18 Previous Rx's Medication Instructions Recorded Albuterol Inhaler (Mhu) [Ventolin 1 - 2 puff INHALATION Q6H PRN 30 02/24/18 Hfa Inhaler (Mhu)] Days #1 inhaler Famotidine [Pepcid] 20 mg PO BID #60 tab 02/24/18 Insulin Detemir (Levemir) [Levemir] 30 unit SQ HS syr 02/24/18 Levofloxacin [Levaquin] 750 mg PO HS 5 Days #5 tab 02/24/18 Trimethobenzamide [Tigan] 300 mg PO QID PRN #3 cap 02/24/18 predniSONE 0 mg PO DIRECTED #21 tab 02/24/18 Meclizine [Antivert] 25 mg PO TID #20 tab 11/18/19 Allergies Allergy/AdvReac Type Severity Reaction Status Date / Time No Known Allergies Allergy Verified 02/21/18 08:31 Review of Systems ROS Statement: Those systems with pertinent positive or pertinent negative responses have been documented in the HPI. ROS Other: All systems not noted in ROS Statement are negative. Past Medical History Past Medical History: Diabetes Mellitus, Hyperlipidemia Additional Past Medical History / Comment(s): uti, vertigo, neuropathy History of Any Multi-Drug Resistant Organisms: None Reported Past Surgical History: Adenoidectomy, Hernia Repair, Joint Replacement, Tonsi llectomy Additional Past Surgical History / Comment(s): casandra knee replacement; bilateral cataract removal, lens implants Past Anesthesia/Blood Transfusion Reactions: No Reported Reaction Past Psychological History: No Psychological Hx Reported, Anxiety Smoking Status: Former smoker Past Alcohol Use History: None Reported Past Drug Use History: None Reported - Past Family History Father Additional Family Medical History / Comment(s): Father of emphysema, mom at 101 General Exam - General Exam Comments Initial Comments: GENERAL: Patient is well-developed and well-nourished. Patient is nontoxic and well-hydrated and is in mild distress. ENT: Neck is soft and supple. No significant lymphadenopathy is noted. Oropharynx is clear. Moist mucous membranes. Neck has full range of motion without eliciting any pain. EYES: The sclera were anicteric and conjunctiva were pink and moist. Extraocular movements were intact and pupils were equal round and reactive to light. Eyelids were unremarkable. PULMONARY: Unlabored respirations. Good breath sounds bilaterally. No audible rales rhonchi or wheezing was noted. CARDIOVASCULAR: There is a regular rate and rhythm without any murmurs gallops or rubs. ABDOMEN: Soft and nontender with normal bowel sounds. SKIN: Skin is clear with no lesions or rashes and otherwise unremarkable. NEUROLOGIC: Patient is alert and oriented x3. Cranial nerves II through XII are grossly intact. Motor and sensory are also intact. Normal speech, volume and content. Symmetrical smile. MUSCULOSKELETAL: Normal extremities with adequate strength and full range of motion. No lower extremity swelling or edema. No calf tenderness. LYMPHATICS: No significant lymphadenopathy is noted PSYCHIATRIC: Normal psychiatric evaluation. Limitations: no limitations Course Vital Signs 11/18/19 08:51 Temperature 98.2 F Pulse Rate 67 Respiratory 18 Rate Blood Pressure 156/107 O2 Sat by Pulse 98 Oximetry Medical Decision Making - Medical Decision Making EKG shows sinus rhythm at 70 bpm ID interval is 212 QRS is 86 QT interval 390 QTC is 421. Patient's EKG shows no ST segment elevation or depression. CT of the brain shows no acute abnormality. Chest x-ray shows no acute abnormality. I will begin to reevaluate the patient he was asymptomatic had no headache he was no longer dizzy. Patient states she has no other complaints at this time. And he feels that he is back to his baseline. - Lab Data Result diagrams: 11/18/19 09:03 11/18/19 09:03 Lab Results 11/18/19 11/18/19 11/18/19 Range/Units 09:03 09:03 09:03 WBC 9.0 (3.8-10.6) k/uL RBC 5.33 (4.30-5.90) m/uL Hgb 14.6 (13.0-17.5) gm/dL Hct 46.1 (39.0-53.0) % MCV 86.5 (80.0-100.0) fL MCH 27.4 (25.0-35.0) pg MCHC 31.7 (31.0-37.0) g/dL RDW 13.1 (11.5-15.5) % Plt Count 220 (150-450) k/uL Neutrophils % 76 % Lymphocytes % 14 % Monocytes % 5 % Eosinophils % 2 % Basophils % 1 % Neutrophils # 6.9 (1.3-7.7) k/uL Lymphocytes # 1.3 (1.0-4.8) k/uL Monocytes # 0.5 (0-1.0) k/uL Eosinophils # 0.2 (0-0.7) k/uL Basophils # 0.1 (0-0.2) k/uL PT 9.9 (9.0-12.0) sec INR 0.9 (<1.2) APTT 26.7 (22.0-30.0) sec Sodium 136 L (137-145) mmol/L Potassium 4.0 (3.5-5.1) mmol/L Chloride 106 (98-107) mmol/L Carbon Dioxide 24 (22-30) mmol/L Anion Gap 6 mmol/L BUN 12 (9-20) mg/dL Creatinine 0.61 L (0.66-1.25) mg/dL Est GFR (CKD-EPI)AfAm >90 (>60 ml/min/1.73 sqM) Est GFR (CKD-EPI)NonAf 90 (>60 ml/min/1.73 sqM) Glucose 223 H (74-99) mg/dL Calcium 7.6 L (8.4-10.2) mg/dL Magnesium 1.6 (1.6-2.3) mg/dL Total Bilirubin 0.3 (0.2-1.3) mg/dL AST 22 (17-59) U/L ALT 20 (4-49) U/L Alkaline Phosphatase 89 (38-126) U/L Troponin I (0.000-0.034) ng/mL Total Protein 5.6 L (6.3-8.2) g/dL Albumin 2.9 L (3.5-5.0) g/dL 11/18/19 Range/Units 09:03 WBC (3.8-10.6) k/uL RBC (4.30-5.90) m/uL Hgb (13.0-17.5) gm/dL Hct (39.0-53.0) % MCV (80.0-100.0) fL MCH (25.0-35.0) pg MCHC (31.0-37.0) g/dL RDW (11.5-15.5) % Plt Count (150-450) k/uL Neutrophils % % Lymphocytes % % Monocytes % % Eosinophils % % Basophils % % Neutrophils # (1.3-7.7) k/uL Lymphocytes # (1.0-4.8) k/uL Monocytes # (0-1.0) k/uL Eosinophils # (0-0.7) k/uL Basophils # (0-0.2) k/uL PT (9.0-12.0) sec INR (<1.2) APTT (22.0-30.0) sec Sodium (137-145) mmol/L Potassium (3.5-5.1) mmol/L Chloride (98-107) mmol/L Carbon Dioxide (22-30) mmol/L Anion Gap mmol/L BUN (9-20) mg/dL Creatinine (0.66-1.25) mg/dL Est GFR (CKD-EPI)AfAm (>60 ml/min/1.73 sqM) Est GFR (CKD-EPI)NonAf (>60 ml/min/1.73 sqM) Glucose (74-99) mg/dL Calcium (8.4-10.2) mg/dL Magnesium (1.6-2.3) mg/dL Total Bilirubin (0.2-1.3) mg/dL AST (17-59) U/L ALT (4-49) U/L Alkaline Phosphatase (38-126) U/L Troponin I <0.012 (0.000-0.034) ng/mL Total Protein (6.3-8.2) g/dL Albumin (3.5-5.0) g/dL Disposition Clinical Impression: Vertigo Disposition: HOME SELF-CARE Condition: Good Instructions (If sedation given, give patient instructions): Vertigo (ED) Prescriptions: Meclizine [Antivert] 25 mg PO TID #20 tab Is patient prescribed a controlled substance at d/c from ED?: No Referrals: Mauricio Henderson DO [Primary Care Provider] - 1-2 days Time of Disposition: 09:50
[2019-11-18 09:16] LABS: Basophils # (A) 0.1 k/uL (0-0.2); Basophils % (A) 1 %; Eosinophils # (A) 0.2 k/uL (0-0.7); Eosinophils % (A) 2 %; HCT 46.1 % (39.0-53.0); HGB 14.6 gm/dL (13.0-17.5); Lymphocytes # (A) 1.3 k/uL (1.0-4.8); Lymphocytes % (A) 14 %; MCH 27.4 pg (25.0-35.0); MCHC 31.7 g/dL (31.0-37.0); MCV 86.5 fL (80.0-100.0); Mean Platelet Volume 7.8; Monocytes # (A) 0.5 k/uL (0-1.0); Monocytes % (A) 5 %; Neutrophils # (A) 6.9 k/uL (1.3-7.7); Neutrophils % (A) 76 %; Platelet Count 220 k/uL (150-450); RBC 5.33 m/uL (4.30-5.90); RDW 13.1 % (11.5-15.5)
[2019-11-18 09:24] LABS: ALT 20 U/L (4-49); AST 22 U/L (17-59); African American GFR (CKD) >90 (>60 ml/min/1.73 sqM); Albumin 2.9 g/dL (3.5-5.0); Alkaline Phosphatase 89 U/L (38-126); Anion Gap 6 mmol/L; Blood Urea Nitrogen 12 mg/dL (9-20); Calcium 7.6 mg/dL (8.4-10.2); Carbon Dioxide 24 mmol/L (22-30); Chloride 106 mmol/L (98-107); Glucose 223 mg/dL (74-99); Magnesium 1.6 mg/dL (1.6-2.3); Non-African American GFR(CKD) 90 (>60 ml/min/1.73 sqM); Sodium 136 mmol/L (137-145); Total Bilirubin 0.3 mg/dL (0.2-1.3); Total Protein 5.6 g/dL (6.3-8.2)
--- NOTE | 2019-11-18 09:37 | CT ---
EXAMINATION TYPE: CT brain wo con DATE OF EXAM: 11/18/2019 COMPARISON: NONE HISTORY: dizziness CT DLP: 1098.4 mGycm Automated exposure control for dose reduction was used. FINDINGS: There are generalized changes of sulcal prominence and ventriculomegaly compatible with atrophic vargas ge. There is diffuse white matter lucency compatible with chronic ischemic change. There is no acute focal lesion, mass effect or midline shift identified. I do not see evidence of intracranial blood Visualized portions of the paranasal sinuses and mastoids are clear. The bony calvarium is intact. IMPRESSION: 1. NO ACUTE INTRACRANIAL ABNORMALITY. 2. ATROPHIC CHANGE. 3. CHRONIC WHITE MATTER ISCHEMIC CHANGE.
--- NOTE | 2019-11-18 09:39 | XR ---
EXAMINATION TYPE: XR chest 2V DATE OF EXAM: 11/18/2019 HISTORY: Chest Pain. REFERENCE: Previous study dated 03/14/2018. FINDINGS: There is some scarring or atelectasis at the left lung base. Lungs otherwise clear. Pleural spaces are clear. The heart is not enlarged. IMPRESSION: SCARRING VERSUS ATELECTASIS, LEFT LUNG BASE.
[2019-11-18 09:41] LABS: INR 0.9 (<1.2); Partial Thromboplastin Time 26.7 sec (22.0-30.0); Prothrombin Time 9.9 sec (9.0-12.0)
[2019-11-18 10:35] VITALS: BP 132/69; PULSE 72
== END 2019-11-18 10:33 | disposition home or self-care (01) ==
LOC: EC 08:45
DX: R42 Dizziness and giddiness (principal); R06.03 Acute respiratory distress; R11.0 Nausea; E78.5 Hyperlipidemia, unspecified; E11.40 Type 2 diabetes mellitus with diabetic neuropathy, unspecified; Z79.4 Long term (current) use of insulin; Z79.899 Other long term (current) drug therapy; Z87.891 Personal history of nicotine dependence; Z96.653 Presence of artificial knee joint, bilateral
CPT/HCPCS: 36415; 70450; 71046; 80053; 83735; 84484; 85025; 85610; 85730; 93005; 99285

== ENCOUNTER 2020-11-02 18:13 | Emergency (ER) | payer MEDICARE ==
[2020-11-02 18:19] VITALS: TEMP 97.9
[2020-11-02] MEDS ORDERED: SODIUM CHLORIDE 0.9% 1,000 ML IV STA (18:33)
--- NOTE | 2020-11-02 18:51 | ED ---
Abdominal Pain HPI - General Chief Complaint: Abdominal Pain Stated Complaint: abd pain Time Seen by Provider: 11/02/20 18:33 Source: patient Mode of arrival: wheelchair Limitations: physical limitation - History of Present Illness Initial Comments: Bennett is a n 89-year-old male who presents to the emergency department today for evaluation of abdominal pain, nausea, decreased oral intake and headaches which have been persistent for approximately 3 weeks. Patient reports that he is diabetic, he is compliant with his medications but doesn't drink enough water he does drink coffee throughout the day. He reports that over the past 3 weeks she's had absolutely no appetite he feels nauseated all times. He has intermittent pain in the right side of his abdomen does not seem to be associated with eating occurs without provocation and resolve spontaneously. Patient states he's also had severe pain behind his eyes. Describes the pain as very sharp. Pain happens spontaneously doesn't seem to be exacerbated by light or dark. Does not cause any vision changes. Patient was evaluated by Dr. Grewal ophthalmology and had normal pressures and normal vision he was told he had a normal eye exam 10 days ago. Despite this he has persistent pain behind the eyes. Pain can happen in one or both eyes and can alternate. Seems to be worse at night when he lays down. - Related Data Home Medications Medication Instructions Recorded Confirmed Finasteride [Proscar] 5 mg PO DAILY 11/15/15 11/02/20 Insulin Glargine [Lantus] 35 - 40 unit SQ DAILY 11/15/15 11/02/20 Aspirin EC [Ecotrin] 325 mg PO DAILY PRN 11/02/20 11/02/20 Atorvastatin [Lipitor] 20 mg PO DAILY 11/02/20 11/02/20 Allergies Allergy/AdvReac Type Severity Reaction Status Date / Time No Known Allergies Allergy Verified 11/02/20 20:37 Review of Systems ROS Statement: Those systems with pertinent positive or pertinent negative responses have been documented in the HPI. ROS Other: All systems not noted in ROS Statement are negative. Past Medical History Past Medical History: Diabetes Mellitus, Hyperlipidemia Additional Past Medical History / Comment(s): uti, vertigo, neuropathy History of Any Multi-Drug Resistant Organisms: None Reported Past Surgical History: Adenoidectomy, Hernia Repair, Joint Replacement, Tonsillectomy Additional Past Surgical History / Comment(s): casandra knee replacement; bilateral cataract removal, lens implants Past Anesthesia/Blood Transfusion Reactions: No Reported Reaction Past Psychological History: No Psychological Hx Reported, Anxiety Smoking Status: Never smoker Past Alcohol Use History: None Reported Past Drug Use History: None Reported - Past Family History Father Additional Family Medical History / Comment(s): Father of emphysema, mom at 101 General Exam - General Exam Comments Initial Comments: Physical Exam GENERAL: Patient is well-developed and well-nourished Patient is nontoxic and well-hydrated and is in no distress HENT: Normocephalic, Atraumatic EYES: PERRL, EOMI PULMONARY: Unlabored respirations. CARDIOVASCULAR: RRR Warm and well perfused extremities ABDOMEN: Soft, Non-distended, no masses SKIN: No rashes or bruising : Deferred NEUROLOGIC: Alert and oriented Normal speech Normal gait MUSCULOSKELETAL: Moving all extremities with no apparent injury PSYCHIATRIC: No SI/HI Limitations: physical limitation Course Vital Signs 11/02/20 11/02/20 11/02/20 18:15 18:49 19:18 Temperature 97.9 F Pulse Rate 85 74 65 Respiratory 18 16 18 Rate Blood Pressure 186/119 160/87 128/72 O2 Sat by Pulse 97 96 97 Oximetry Medical Decision Making - Medical Decision Making She was seen and evaluated history is obtained from patient and mother bedside Labs were ordered and resulted with hyperglycemia no other significant abnormal ities Computed tomography scan of the head and abdomen were ordered CT scan of head with no acute findings Computed tomography scan of the abdomen with incidental findings of renal artery aneurysm, renal cyst, psych hypertrophy and bladder dilatation Patient was made aware of evidence of a findings he follows with urology for his prostate - Lab Data Result diagrams: 11/02/20 18:43 11/02/20 18:43 Lab Results 11/02/20 11/02/20 11/02/20 Range/Units 18:43 18:43 18:43 WBC 8.4 (3.8-10.6) k/uL RBC 5.40 (4.30-5.90) m/uL Hgb 15.2 (13.0-17.5) gm/dL Hct 47.1 (39.0-53.0) % MCV 87.2 (80.0-100.0) fL MCH 28.2 (25.0-35.0) pg MCHC 32.3 (31.0-37.0) g/dL RDW 13.6 (11.5-15.5) % Plt Count 209 (150-450) k/uL MPV 7.1 Neutrophils % 68 % Lymphocytes % 21 % Monocytes % 4 % Eosinophils % 5 % Basophils % 1 % Neutrophils # 5.7 (1.3-7.7) k/uL Lymphocytes # 1.8 (1.0-4.8) k/uL Monocytes # 0.4 (0-1.0) k/uL Eosinophils # 0.4 (0-0.7) k/uL Basophils # 0.1 (0-0.2) k/uL Sodium 134 L (137-145) mmol/L Potassium 4.4 (3.5-5.1) mmol/L Chloride 103 (98-107) mmol/L Carbon Dioxide 25 (22-30) mmol/L Anion Gap 6 mmol/L BUN 14 (9-20) mg/dL Creatinine 0.79 (0.66-1.25) mg/dL Est GFR (CKD-EPI)AfAm >90 (>60 ml/min/1.73 sqM) Est GFR (CKD-EPI)NonAf 80 (>60 ml/min/1.73 sqM) Glucose 243 H (74-99) mg/dL Plasma Lactic Acid Trevor (0.7-2.0) mmol/L Calcium 9.8 (8.4-10.2) mg/dL Total Bilirubin 0.4 (0.2-1.3) mg/dL AST 30 (17-59) U/L ALT 25 (4-49) U/L Alkaline Phosphatase 99 (38-126) U/L Total Protein 6.6 (6.3-8.2) g/dL Albumin 3.9 (3.5-5.0) g/dL Lipase 32 (23-300) U/L Urine Color Light Yellow Urine Appearance Clear (Clear) Urine pH 6.5 (5.0-8.0) Ur Specific [place] 1.009 (1.001-1.035) Urine Protein Negative (Negative) Urine Glucose (UA) 4+ H (Negative) Urine Ketones Negative (Negative) Urine Blood Negative (Negative) Urine Nitrite Negative (Negative) Urine Bilirubin Negative (Negative) Urine Urobilinogen <2.0 (<2.0) mg/dL Ur Leukocyte Esterase Negative (Negative) 11/02/20 Range/Units 18:43 WBC (3.8-10.6) k/uL RBC (4.30-5.90) m/uL Hgb (13.0-17.5) gm/dL Hct (39.0-53.0) % MCV (80.0-100.0) fL MCH (25.0-35.0) pg MCHC (31.0-37.0) g/dL RDW (11.5-15.5) % Plt Count (150-450) k/uL MPV Neutrophils % % Lymphocytes % % Monocytes % % Eosinophils % % Basophils % % Neutrophils # (1.3-7.7) k/uL Lymphocytes # (1.0-4.8) k/uL Monocytes # (0-1.0) k/uL Eosinophils # (0-0.7) k/uL Basophils # (0-0.2) k/uL Sodium (137-145) mmol/L Potassium (3.5-5.1) mmol/L Chloride (98-107) mmol/L Carbon Dioxide (22-30) mmol/L Anion Gap mmol/L BUN (9-20) mg/dL Creatinine (0.66-1.25) mg/dL Est GFR (CKD-EPI)AfAm (>60 ml/min/1.73 sqM) Est GFR (CKD-EPI)NonAf (>60 ml/min/1.73 sqM) Glucose (74-99) mg/dL Plasma Lactic Acid Trevor 1.6 (0.7-2.0) mmol/L Calcium (8.4-10.2) mg/dL Total Bilirubin (0.2-1.3) mg/dL AST (17-59) U/L ALT (4-49) U/L Alkaline Phosphatase (38-126) U/L Total Protein (6.3-8.2) g/dL Albumin (3.5-5.0) g/dL Lipase (23-300) U/L Urine Color Urine Appearance (Clear) Urine pH (5.0-8.0) Ur Specific [place] (1.001-1.035) Urine Protein (Negative) Urine Glucose (UA) (Negative) Urine Ketones (Negative) Urine Blood (Negative) Urine Nitrite (Negative) Urine Bilirubin (Negative) Urine Urobilinogen (<2.0) mg/dL Ur Leukocyte Esterase (Negative) - EKG Data -: EKG Interpreted by Me EKG Comments: EKG was obtained 1825 rate is 70 rhythm is sinus, NE, normal axis, NE to 30, QRS [address] elevations or depressions no evidence of ischemia or infarction Disposition Clinical Impression: Hyperglycemia, Abdominal pain, Eye pain, Renal cyst, Renal arterial aneurysm Disposition: HOME SELF-CARE Condition: Stable Additional Instructions: Drink more water, keep a close eye on your glucose level Follow up with your doctor about the enlarged prostate and headaches Is patient prescribed a controlled substance at d/c from ED?: No Referrals: Mauricio Henderson DO [Primary Care Provider] - 1-2 days
[2020-11-02 18:53] LABS: Basophils # (A) 0.1 k/uL (0-0.2); Basophils % (A) 1 %; Eosinophils # (A) 0.4 k/uL (0-0.7); Eosinophils % (A) 5 %; HCT 47.1 % (39.0-53.0); HGB 15.2 gm/dL (13.0-17.5); Lymphocytes # (A) 1.8 k/uL (1.0-4.8); Lymphocytes % (A) 21 %; MCH 28.2 pg (25.0-35.0); MCHC 32.3 g/dL (31.0-37.0); MCV 87.2 fL (80.0-100.0); Mean Platelet Volume 7.1; Monocytes # (A) 0.4 k/uL (0-1.0); Monocytes % (A) 4 %; Neutrophils # (A) 5.7 k/uL (1.3-7.7); Neutrophils % (A) 68 %; Platelet Count 209 k/uL (150-450); RDW 13.6 % (11.5-15.5); WBC 8.4 k/uL (3.8-10.6)
[2020-11-02 19:04] LABS: ALT 25 U/L (4-49); AST 30 U/L (17-59); African American GFR (CKD) >90 (>60 ml/min/1.73 sqM); Albumin 3.9 g/dL (3.5-5.0); Alkaline Phosphatase 99 U/L (38-126); Anion Gap 6 mmol/L; Blood Urea Nitrogen 14 mg/dL (9-20); Calcium 9.8 mg/dL (8.4-10.2); Carbon Dioxide 25 mmol/L (22-30); Chloride 103 mmol/L (98-107); Glucose 243 mg/dL (74-99); Lipase 32 U/L (23-300); Non-African American GFR(CKD) 80 (>60 ml/min/1.73 sqM); Potassium 4.4 mmol/L (3.5-5.1); Sodium 134 mmol/L (137-145); Total Bilirubin 0.4 mg/dL (0.2-1.3); Total Protein 6.6 g/dL (6.3-8.2)
[2020-11-02 19:19] VITALS: RESP 18
[2020-11-02 19:43] LABS: Appearance,Urine Clear (Clear); Bilirubin,Urine Negative (Negative); Blood,Urine Negative (Negative); Color,Urine Light Yellow; Glucose,Urine (UA) 4+ (Negative); Ketones,Urine Negative (Negative); Leukocyte Esterase,Urine Negative (Negative); Nitrite,Urine Negative (Negative); PH, Urine 6.5 (5.0-8.0); Protein,Urine Negative (Negative); Specific Gravity,Urine 1.009 (1.001-1.035); Urobilinogen,Urine <2.0 mg/dL (<2.0)
--- NOTE | 2020-11-02 20:29 | CT ---
EXAM: CT brain wo con CLINICAL HISTORY: Headache. COMPARISON: 11/18/2019 TECHNIQUE: Contiguous axial noncontrast images of the brain were obtained. Coronal and sagittal refor mats were generated and reviewed. Automated dose control was used for this exam. FINDINGS: There is no evidence for intracranial hemorrhage, mass effect or midline shift. White matter is gross ly preserved. There is mild to moderate parenchymal volume loss. Ventricular size and configuration is within normal limits for degree of parenchymal volume. The paranasal sinuses are clear. The mastoid air cells are clear. No evidence for calvarial fracture. IMPRESSION: No acute intracranial abnormality.
--- NOTE | 2020-11-02 20:53 | CT ---
EXAMINATION TYPE: CT abdomen pelvis w con DATE OF EXAM: 11/02/2020 COMPARISON: None available. HISTORY: right flank pain CT DLP: 1244.5 mGycm Automated exposure control for dose reduction was used. TECHNIQUE: Helical acquisition of images was performed from the lung bases through the pelvis. CONTRAST: Performed without Oral Contrast and with IV Contrast, patient injected with 100 mL of Isovue 300. FINDINGS: LUNG BASES: No significant abnormality is appreciated. LIVER/GB: No significant abnormality is appreciated. PANCREAS: No significant abnormality is seen. SPLEEN: No significant abnormality is seen. ADRENALS: No significant abnormality is seen. KIDNEYS: 5.2 cm right parapelvic cyst. No bilateral hydronephrosis or nephrolithiasis. Also bilateral renal pelvic ectasia. FREE AIR: No free air is visualized. RETROPERITONEAL ADENOPATHY: None visualized REPRODUCTIVE ORGANS: No significant abnormality is seen URINARY BLADDER: No acute abnormality is seen. Urinary bladder distention with diverticula. Prostato megaly. PELVIC ADENOPATHY: None visualized. OSSEOUS STRUCTURES: No significant abnormality is seen. BOWEL: No significant abnormality is seen. 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 1.9 cm right common iliac artery ectasia. IMPRESSION: NO DEFINITE ACUTE ABNORMALITY. LARGE RIGHT RENAL PARAPELVIC CYST. 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
[2020-11-02] MEDS ORDERED: INSULIN REGULAR 100 UNIT/ML VIAL SQ ONE (21:11)
[2020-11-02 21:22] LABS: Glucose,Whole Blood 169 mg/dL (75-99)
[2020-11-02 21:26] VITALS: BP 140/69; PULSE 66
== END 2020-11-02 21:31 | disposition home or self-care (01) ==
LOC: EC 18:13
DX: E11.65 Type 2 diabetes mellitus with hyperglycemia (principal); H57.13 Ocular pain, bilateral; N28.1 Cyst of kidney, acquired; I72.2 Aneurysm of renal artery; R51.9 Headache, unspecified; F41.9 Anxiety disorder, unspecified; E78.5 Hyperlipidemia, unspecified; E11.40 Type 2 diabetes mellitus with diabetic neuropathy, unspecified; N40.0 Benign prostatic hyperplasia without lower urinary tract symptoms; Z79.4 Long term (current) use of insulin; Z79.82 Long term (current) use of aspirin; Z79.899 Other long term (current) drug therapy; Z96.653 Presence of artificial knee joint, bilateral
CPT/HCPCS: 36415; 80053; 83605; 83690; 85025; 81003; 70450; 74177; 99284; 96360; 96361; Q9967

== ENCOUNTER → 2020-12-11 | Outpatient (CLI) | payer MEDICARE ==
--- NOTE | 2020-12-12 03:07 | MR ---
EXAMINATION TYPE: MR brain wo/w con DATE OF EXAM: 12/11/2020 COMPARISON: None HISTORY: Headaches. Dizziness. CONTRAST: Standard multiplanar, multisequence MRI departmental protocol utilizing 8.5 mL intravenous gadolinium contrast. There is diffuse cerebral atrophy. There is no mass effect nor midline shift. There is no sign of int racranial hemorrhage. There is no sign of an acute cortical infarct. There are scattered small foci o f increased signal in the periventricular white matter measuring up to 5 mm. Total number is approxim ately 15 and most of these are 3 mm or less. The brainstem is intact. Cerebellum is intact. There is some thinning of the corpus callosum. There is no evidence of orbital mass. The globes are symmetric. There is normal enhancement of the venous sinuses. I see no pathologic enhancement There is 1 cm mucous retention cyst right maxillary sinus. IMPRESSION: No evidence of an acute infarct. Scattered white matter high signal foci are nonspecific and could re late to chronic small vessel ischemia or demyelinating disease. Cerebral atrophy.
== END | disposition home or self-care (01) ==
LOC: RADMRIMAIN 08:39
PROVIDERS: ATTEND Family Medicine
DX: G31.9 Degenerative disease of nervous system, unspecified (principal)
CPT/HCPCS: 70553; A9585